=== PATIENT | male | born 1975 | race Two or more races ===

== ENCOUNTER 2024-06-08 00:46 | Emergency (ER) | payer MEDICAID, SELFPAY ==
[2024-06-08 00:46] VITALS: BMI 25.8
[2024-06-08 00:58] VITALS: BP 101/60; PULSE 87; RESP 20; TEMP 37.2; O2SAT 100
--- NOTE | 2024-06-08 01:05 | PD.EDURI ---
Upper Respiratory Inf. RME/HPI General Chief Complaint: Flu Like Symptoms Stated Complaint: FLU LIKE SYMPTOMS Time Seen by Provider: 06/08/24 01:02 Arrival date/time: 06/08/24 00:46 49M with no significant PMH presents to ED with 2 days of cough, MCNEIL, and fevers/chills. Limitations: no limitations Related Data Allergies Allergy/AdvReac Type Severity Reaction Status Date / Time No Known Allergies Allergy Verified 06/08/24 00:48 Review of Systems Review of Systems Systems Reviewed: All systems reviewed, normal except as documented Constitutional Constitutional: Reports system reviewed and no additional complaints, except as documented, Reports as per HPI, Reports chills, Reports fever(s) and Reports headache(s) ENT Ears, Nose, Mouth, and Throat: Denies disequilibrium and Reports headache(s) Cardiovascular Cardiovascular: Reports system reviewed and no additional complaints, except as documented, Denies chest pain and Denies dyspnea Respiratory Respiratory: Reports system reviewed and no additional complaints, except as documented, Reports as per HPI, Reports cough and Denies dyspnea Gastrointestinal Gastrointestinal: Reports system reviewed and no additional complaints, except as documented, Denies abdominal pain, Denies nausea and Denies vomiting Neurologic Neurologic: Reports system reviewed and no additional complaints, except as documented, Denies confusion, Denies disequilibrium and Reports headache(s) Psychiatric Psychiatric: Denies confusion Past Medical History Social History SMOKING STATUS: Never smoker ED Exam General Limitations: Present no limitations General appearance: Present alert and in no apparent distress Head Head exam: Present atraumatic Eye Eye exam: Present normal appearance, PERRL and EOMI ENT ENT exam: Present normal exam, normal oropharynx and mucous membranes moist Neck Neck exam: Present normal inspection, full ROM and trachea midline Chest Chest inspection: Present normal inspection and symmetric chest wall rise Respiratory Respiratory exam: Present normal lung sounds bilaterally Cardiovascular Cardiovascular exam: Present regular rate, normal rhythm and normal heart sounds Abdominal Exam Abdominal exam: Present soft and normal bowel sounds Extremities Exam Extremities exam: Present normal inspection and full ROM Back Exam Back exam: Present normal inspection and full ROM Neurological Exam Neurological exam: Present alert, oriented X3 and CN II-XII intact Psychiatric Psychiatric exam: Present normal affect and normal mood Skin Skin exam: Present warm, dry, intact and normal color Course Quality Measures none Orders Category Date Time Status Bedside COVID-19 Antigen Test NOW Care 06/08/24 00:47 Active Bedside Influenza A&B Antigen Test NOW Care 06/08/24 00:47 Completed Acetaminophen Tab [Tylenol ES Tab] Med 06/08/24 01:03 Discontinued 1,000 mg PO X1 ONE DiphenhydrAMINE [Benadryl] Med 06/08/24 01:03 Discontinued 25 mg PO X1 ONE Naproxen [Naprosyn] Med 06/08/24 01:03 Discontinued 500 mg PO X1 ONE Vital Signs Vital signs: Vital Signs Temperature 98.9 F 06/08/24 00:58 Pulse Rate 87 06/08/24 00:58 Respiratory Rate 20 06/08/24 00:58 Blood Pressure 101/60 06/08/24 00:58 Pulse Oximetry (%) 100 06/08/24 00:58 Oxygen Delivery Method Room Air 06/08/24 00:58 O2 at 100% on RA and WNLs Upper Respiratory Infection MDM Narrative MDM Narrative:: 49M with no significant PMH presents to ED with 2 days of cough, MCNEIL, and fevers/chills. Physical exam reveals clear ENT and lungs. No neck tenderness. ROM intact. Patient is afebrile, calm, and alert. Flu A +. 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 Patient data External records reviewed:: None Clinical information provided by:: patient Social determinants that could affect healthcare access:: none Patient has the following chronic illnesses:: none How is presenting disease/condition affected by chronic disease/condition?: no chronic disease Evaluation data The following diagnostics were reviewed and interpreted by me:: lab results Lab and/or radiology exams considered but not ordered:: ordered Interpretation Summary: above Medications / Prescriptions Medications or Prescriptions considered but not ordered:: ordered Medication administrations:: Medication Administration History Discontinued Medications Acetaminophen (Acetaminophen 500 Mg Tablet) 1,000 mg PO X1 ONE Stop: 06/08/24 01:04 Diphenhydramine HCl (Diphenhydramine 25 Mg Capsule) 25 mg PO X1 ONE Stop: 06/08/24 01:04 Naproxen (Naproxen 250 Mg Tablet) 500 mg PO X1 ONE Stop: 06/08/24 01:04 above Consultations Consultation(s) initiated? (list below): No Diagnosis Upper Respiratory Differential Diagnosis: upper respiratory infection, croup, otitis media, sinusitis, viral infection, bronchitis, influenza and pharyngitis Most likely diagnosis given after review of the tests above:: flu A Admission Indicated Admission indicated?: not indicated Admission Request Was there a request for admission?: No Disposition Plan Disposition Plan: Discharge Discharge Attestation Discharge Attestation: The patient and all family members were given an opportunity to ask questions and understood the discharge instructions. Discharge instructions specifically effects, indications for sooner follow up or return to the emergency department, and the expected course of current diagnosis. Patient condition: Stable Discharge Plan Plan Patient Disposition: HOME (Self Care) Disposition Comment: Stable Problem List Clinical Impression: Influenza A Patient/Caregiver Discharge Instructions Education Materials: ED Influenza (Adult) Additional Instructions: Please follow-up with PCP within 24-48 hours and return immediately if symptoms worsen. Ibuprofen/Tylenol can be used simultaneously for greater fever/pain control. Benadryl is good for cough, congestion, and sleep. Print Language: Belgian Stand Alone Forms: Patient Portal Info Letter PA/[employer]QU[employer]MENT SALESPERSON Supervising Physician ODALIS/WILLI Supervising Physician: Dr. Hummel
[2024-06-08] MEDS: NAPROXEN 250 MG TABLET 500 MG PO (01:07)
[2024-06-08] MEDS: DiphenhydrAMINE 25 MG CAPSULE PO (01:08)
[2024-06-08] MEDS: ACETAMINOPHEN 500 MG TABLET 1000 MG PO (01:08)
== END 2024-06-08 01:09 | disposition home or self-care (01) ==
LOC: SERX 04:26
PROVIDERS: Emergency Provider Emergency Medicine
DX: J10.1 Influenza due to other identified influenza virus with other respiratory manifestations (principal)
CPT/HCPCS: 87400; 87811; 99283; A9270